=== PATIENT | male | born 1970 | race Caucasian/White ===

== ENCOUNTER 2022-10-11 05:55 | Inpatient (IN) | payer SELFPAY ==
[~2022-10-11] VITALS: Ht 170.2 cm; Wt 83.5 kg
[2022-10-11] MEDS ORDERED: SODIUM CHLORIDE 0.9% 1,000 ML IV ONE (06:15)
[2022-10-11 06:28] LABS: BASOPHILS % 1.2 % (0.0-2.0); EOSINOPHILS % 3.7 % (0.0-5.0); HEMOGLOBIN. 17.9 g/dL (14.0-18.0); LYMPHOCYTES % 28.9 % (20.0-50.0); MEAN CORPUSCULAR HEMOGLOBIN 31.9 pg (28.0-32.0); MEAN CORPUSCULAR VOLUME 94.1 fL (80.0-94.0); MEAN PLATELET VOLUME 7.7 fl (7.4-10.4); MONOCYTES % 10.2 % (2.0-8.0); PLATELET 232 x1000/uL (130-400); RED BLOOD CELL COUNT 5.63 mill/uL (4.7-6.1); RED CELL DISTRIBUTION WIDTH 14.4 % (11.6-14.6)
[2022-10-11] MEDS ORDERED: NALOXONE HCL 1 MG/ML 2ML VIAL IV ONE (06:30)
[2022-10-11 06:45] LABS: CHLORIDE 103 mEq/L (98-107)
[2022-10-11 06:53] LABS: CREATINE KINASE 134 IU/L (39-308); ETHANOL BLOOD < 10 mg/dL
[2022-10-11 06:56] LABS: CLARITY URINE CLEAR (CLEAR); COLOR URINE YELLOW (YELLOW); KETONES URINE NEGATIVE (NEGATIVE); LEUKOCYTE ESTERASE URINE NEGATIVE (NEGATIVE); NITRITE URINE NEGATIVE (NEGATIVE); OCCULT BLOOD URINE TRACE (NEGATIVE); PH URINE 5.5 (4.5-8.0); PROTEIN URINE NEGATIVE (NEGATIVE); SPECIFIC GRAVITY URINE 1.004 (1.005-1.030); UROBILINOGEN URINE 0.2 E.U./dL (0.2-1.0)
[2022-10-11 08:34] LABS: *AMPHETAMINES SCREEN URINE NEGATIVE (NEGATIVE); *BARBITURATES SCREEN URINE NEGATIVE (NEGATIVE); *BENZODIAZEPINES SCREEN URINE NEGATIVE (NEGATIVE); *COCAINE SCREEN URINE NEGATIVE (NEGATIVE); CANNABINOID URINE SCREEN PRESUMTIVE POSITIVE (NEGATIVE); METHADONE URINE SCREEN NEGATIVE (NEGATIVE); OPIATES URINE SCREEN NEGATIVE (NEGATIVE); PHENCYCLIDINE URINE SCREEN NEGATIVE (NEGATIVE)
[2022-10-11 12:00] VITALS: BP 162/102
[2022-10-11] MEDS ORDERED: IPRATROPIUM/ALBUTEROL 0.5-3(2.5)MG/3ML NEB HHN PRN (14:45)
[2022-10-11] MEDS ORDERED: DOCUSATE SODIUM 100MG CAPSULE PO PRN (14:45)
[2022-10-11] MEDS ORDERED: ONDANSETRON HCL 4MG/2ML INJ IV PRN (14:45)
[2022-10-11] MEDS ORDERED: HYDROCODONE/ACETAMINOPHEN 5/325MG TABLET PO PRN (14:45)
[2022-10-11] MEDS ORDERED: CLONIDINE 0.1MG TABLET PO PRN (14:45)
[2022-10-11] MEDS ORDERED: HALOPERIDOL LACTATE 5MG/ML VIAL IM PRN (14:45)
[2022-10-11] MEDS ORDERED: ACETAMINOPHEN 325MG TABLET PO PRN ×2 (14:45)
[2022-10-11] MEDS ORDERED: LORAZEPAM 2MG/ML CPJ IV PRN (14:45)
[2022-10-11] MEDS ORDERED: DIPHENHYDRAMINE 50MG/ML VIAL IV PRN (14:45)
[2022-10-11] MEDS ORDERED: NALOXONE HCL 0.4MG/ML VIAL IV PRN (15:00)
[2022-10-11 16:00] VITALS: BP 165/106
[2022-10-11 18:19] VITALS: BP 169/102
[2022-10-11 20:00] VITALS: BP 131/90
[2022-10-11] MEDS: SODIUM CHLORIDE 0.9% 1,000 ML IV SCH (20:36)
[2022-10-12 00:05] VITALS: BP 141/97
[2022-10-12 04:00] VITALS: BP 144/91
[2022-10-12] MEDS: SODIUM CHLORIDE 0.9% 1,000 ML IV SCH (04:20)
== END 2022-10-12 06:20 | disposition left against medical advice (07) | DRG 861 ==
LOC: ER 06:08 → 7WST 11:48 → EDBEDREQ 11:54
PROVIDERS: ADMIT Internal Medicine; ATTEND Internal Medicine
DX: R41.82 Altered mental status, unspecified (principal); Z53.29 Procedure and treatment not carried out because of patient's decision for other reasons
CPT/HCPCS: 36415; 80053; 80305; 80307; 80320; 80329; 81003; 82140; 82550; 82962; 83605; 85025; 99291; J1200; J2060; J2310; J7030; G0480